=== PATIENT | female | born 1965 | race Caucasian/White ===

== ENCOUNTER → 2024-03-11 | Outpatient (CLI) | payer BC, SELFPAY ==
[2024-03-11 10:19] LABS: Collection Type, Urine Clean Catch; Squamous Epithelial Cell,Urine 0 /hpf (0-5); WBC,Urine 0 /hpf (0-5)
[2024-03-11 10:46] LABS: Bacteria,Urine Rare; Bilirubin,Urine Negative (Negative); Blood,Urine Negative (Negative); Clarity,Urine Clear (Clear/Hazy); Color,Urine Colorless (Lt Yel-Yel); Culture Indicated,Urine Not Indicated; Glucose, Urine Negative (Negative); Ketones,Urine Negative (Negative); Leukocyte Esterase,Urine Negative (Negative); Nitrite,Urine Negative (Negative); Protein,Urine Negative (Neg - Trace); RBC,Urine < 1 /hpf (0-3); Specific Gravity,Urine 1.005 (1.001-1.035); Urobilinogen,Urine Negative mg/dL (0.0-1.0)
[2024-03-11 10:53] LABS: Basophils % (Auto) 0 % (0-2.5); Eosinophils # (Auto) 0.1 Thou/mm3 (0.0-0.5); Eosinophils % (Auto) 1 % (0-10); Hematocrit 45.5 % (36.0-46.0); Hemoglobin 15.2 g/dL (12.0-16.0); Immature Granulocytes % (Auto) 0 % (0-0); Immature Granulocytes Auto 0.01 Thou/mm3 (0.00-0.00); Lymphocytes # (Auto) 1.8 Thou/mm3 (1.0-4.8); Lymphocytes % (Auto) 37 % (10-50); Mean Corpuscular HGB Conc 33.4 g/dl (31.0-37.0); Mean Corpuscular Hemoglobin 31.5 pg (25.0-35.0); Mean Corpuscular Volume 94 fL (80-100); Monocytes # (Auto) 0.4 Thou/mm3 (0.0-0.8); Monocytes % (Auto) 8 % (0-12); Neutrophils # (Auto) 2.6 Thou/mm3 (1.8-7.7); Neutrophils % (Auto) 53 % (37-80); Nucleated Red Blood Cell % 0 /100 WBC (0); Platelet Count 288 Thou/mm3 (140-440); RDW Standard Deviation 40.8 fL (36.4-46.3); Red Blood Count 4.82 Miln/mm3 (4.00-5.20); White Blood Count 4.9 Thou/mm3 (3.6-11.0)
[2024-03-11 10:54] LABS: Glucose Estimated Average 97 mg/dL (80-131)
[2024-03-11 10:58] LABS: Alanine Aminotransferase 11 U/L (10-49); Albumin, Serum 5.1 gm/dL (3.5-5.0); Albumin/Globulin Ratio 2.3 (1.2-2.2); Alkaline Phosphatase 73 U/L (46-116); Anion Gap 6 (7-16); Aspartate Amino Transferase 18 U/L (0-34); BUN/Creatinine Ratio 18 Ratio (12-20); Bilirubin,Total 0.8 mg/dL (0.3-1.2); Blood Urea Nitrogen 14 mg/dL (9-23); Calcium 10.1 mg/dL (8.3-10.6); Calcium (Corrected) 10.1 mg/dL (8.5-10.1); Carbon Dioxide 28.1 mMol/L (20.0-31.0); Cardiac Risk Estimate 2.8 RATIO (3.7-5.6); Chloride 105 mMol/L (98-107); Cholesterol 199 mg/dL (132-200); Creatinine (Component) 0.8 mg/dL (0.6-1.3); Free T4 (Free Thyroxine) 1.36 ng/dL (0.89-1.76); Globulin 2.2 gm/dL (2.3-3.5); Glucose 98 mg/dL (74-106); HDL Cholesterol 71 mg/dL (40-60); LDL Cholesterol,Calculated 117 mg/dL (0-130); Osmolality,Calculated 278 (275-295); Potassium 4.3 mMol/L (3.4-5.1); Sodium 139 mMol/L (136-145); Total Protein 7.3 gm/dL (5.7-8.2); Triglycerides 53 mg/dL (30-150); eGFR > 60 See Note
[2024-03-11 11:00] LABS: Follicle Stimulating Hormone 109.07 mIU/mL (See Note)
[2024-03-23 06:42] LABS: DHEA Sulfate* 90 mcg/dL (8-188); Estrogen, Total, Serum* 41 pg/mL; Luteinizing Hormone* 29.7 mIU/mL; Progesterone,LC/MS* <0.1 ng/mL; Prolactin* 4.4 ng/mL; Testosterone, Free,Dialysis 1.6 pg/mL (0.1-6.4); Testosterone, Total, Dialysis 18 ng/dL (2-45)
== END | disposition home or self-care (01) ==
PROVIDERS: PCP Family Medicine; Referring Provider Physician Assistant Medical; Visit Provider Nurse Practitioner Family
DX: N95.1 Menopausal and female climacteric states (principal); Z12.31 Encounter for screening mammogram for malignant neoplasm of breast
CPT/HCPCS: 36415; 80053; 80061; 81001; 82627; 82672; 83001; 83002; 83036; 84144; 84146; 84402; 84403; 84439; 84443; 85025